=== PATIENT | male | born 1990 | race American Indian/Alaskan Native ===

== ENCOUNTER 2017-12-24 23:47 | Emergency (ER) | payer OTHER ==
[2017-12-25 00:03] VITALS: BP 148/73
[2017-12-25 00:40] LABS: CHLORIDE,CL 102 mmol/L (101-111); SODIUM,NA 137 mmol/L (135-145)
[2017-12-25] MEDS ORDERED: Ketorolac 30 MG/ML SDV IM ONE (00:57)
[2017-12-25] MEDS ORDERED: Acetaminophen/Codeine 300-30 MG Tab PO ONE (01:05)
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
== END 2017-12-25 01:15 | disposition home or self-care (01) ==
LOC: DL.ED 23:47
DX: S82.62XA Displaced fracture of lateral malleolus of left fibula, initial encounter for closed fracture (principal); F17.210 Nicotine dependence, cigarettes, uncomplicated; Y08.89XA Assault by other specified means, initial encounter
CPT/HCPCS: 36415; 73502; 73552; 73560; 73600; 80053; 85025; 96372; 99283; A9270; G0480; J1885

== ENCOUNTER 2020-03-28 09:48 | Emergency (ER) | payer OTHER ==
[2020-03-28] MEDS ORDERED: LORazepam 1 MG Tab PO ONE (10:04)
--- NOTE | 2020-03-28 10:13 | EDM.PDOCBH ---
ED HPI GENERAL MEDICAL PROBLEM - General Chief Complaint: Behavioral/Psych Stated Complaint: CHEST PAINS/SOB Time Seen by Provider: 03/28/20 10:00 Source of Information: Reports: Patient, Old Records, RN, RN Notes Reviewed History Limitations: Reports: No Limitations - History of Present Illness INITIAL COMMENTS - FREE TEXT/NARRATIVE: Pt presents to ER from home by POV with c/o anxiety, tremor/shaking, with panic attacks causing chest pain and numbness to the hands and around his mouth. Pt states he got out of penitentiary last week and was released with none of his chronic medications. The 2.5yrs that he was in penitentiary he states he took BuSpar 15mg twice a day, and Zoloft 100mg daily for anxiety and panic attack control. He states he was well controlled on the medication. He did not think to go to clinic to re-establish care and get his medications filled. Duration: Week(s): (1), Constant Location: Reports: Chest, Generalized Severity: Severe Improves with: Reports: None Worsens with: Reports: None Associated Symptoms: Reports: No Other Symptoms - Related Data Allergies Allergy/AdvReac Type Severity Reaction Status Date / Time No Known Allergies Allergy Verified 03/28/20 09:55 Home Meds: Home Meds . [No Known Home Meds] 01/13/14 [History] Past Medical History - Past Health History Medical/Surgical History: Denies Medical/Surgical History Musculoskeletal History: Reports: Fracture Psychiatric History: Reports: Anxiety, Panic Attack - Infectious Disease History Infectious Disease History: Reports: Chicken Pox Social & Family History - Family History Family Medical History: Noncontributory - Caffeine Use Caffeine Use: Reports: Soda - Living Situation & Occupation Living situation: Reports: Single, with Family Occupation: Employed ED ROS GENERAL - Review of Systems Review Of Systems: Comprehensive ROS is negative, except as noted in HPI. ED EXAM, BEHAVIORAL HEALTH - Physical Exam Exam: See Below Exam Limited By: No Limitations General Appearance: Alert, WD/WN, No Apparent Distress, Anxious Eye Exam: Bilateral Eye: Normal Inspection Nose: Normal Inspection Throat/Mouth: Normal Inspection, Normal Lips, Normal Teeth, Normal Gums, Normal Oropharynx, Normal Voice, No Airway Compromise Head: Atraumatic, Normocephalic Neck: Normal Inspection, Supple, Non-Tender, Full Range of Motion Respiratory/Chest: No Respiratory Distress, Lungs Clear, Normal Breath Sounds, No Accessory Muscle Use, Chest Non-Tender Cardiovascular: Regular Rate, Rhythm, No Edema, No JVD, No Murmur GI/Abdominal: Normal Bowel Sounds, Soft, Non-Tender, No Organomegaly, No Distention, No Abnormal Bruit, No Mass Back Exam: Normal Inspection Extremities: Normal Inspection Neurological: Alert, Normal Mood/Affect, CN II-XII Intact, Normal Cognition, No Motor/Sensory Deficits, Oriented x 3, Tremor Psychiatric: Restless, Other (Anxious). No: Homicidal Thoughts, Suicidal Plan, Suicidal Thoughts, Auditory Hallucinations, Visual Hallucinations Skin Exam: Warm, Dry, Intact, Normal color, No rash EKG INTERPRETATION EKG Date: 03/28/20 Time: 10:07 Rhythm: Other (Sinus tach) Rate (Beats/Min): 101 [place]: Normal P-Wave: Present QRS: Other (LPFB) ST-T: Normal QT: Prolonged (borderline) COURSE, BEHAVIORAL HEALTH COMP - Course Orders, Labs, Meds: Active Orders 24 hr Category Date Time Status EKG 12 Lead [EKG Documentation Completion] [RC] STAT Care 03/28/20 10:04 Active Medications Discontinued Medications Generic Name Dose Route Start Last Admin Trade Name Freq PRN Reason Stop Dose Admin Lorazepam 1 mg 03/28/20 10:04 03/28/20 10:11 Ativan PO 03/28/20 10:05 1 mg ONETIME ONE Administration Departure - Departure Time of Disposition: 10:16 Disposition: Home, Self-Care 01 Condition: Good Clinical Impression: Generalized anxiety disorder with panic attacks - Discharge Information *PRESCRIPTION DRUG MONITORING PROGRAM REVIEWED*: Not Applicable *COPY OF PRESCRIPTION DRUG MONITORING REPORT IN PATIENT DARION: Not Applicable Instructions: Living With Anxiety, Panic Attack, [id number] Forms: ED Department Discharge Additional Instructions: Rx: BuSpar 7.5mg Rx: Zoloft 50mg Follow up with [facility] within the next 7 days for medication management. - My Orders Last 24 Hours: My Active Orders 03/28/20 10:04 EKG 12 Lead [EKG Documentation Completion] [RC] STAT - Assessment/Plan Last 24 Hours: My Active Orders 03/28/20 10:04 EKG 12 Lead [EKG Documentation Completion] [RC] STAT
[2020-03-28 10:22] VITALS: BP 144/92; PULSE 105
== END 2020-03-28 10:30 | disposition home or self-care (01) ==
LOC: DL.ED 09:48
DX: F41.1 Generalized anxiety disorder (principal); F41.0 Panic disorder [episodic paroxysmal anxiety]
CPT/HCPCS: 93005; 93010; 99283; A9270

== ENCOUNTER 2020-03-29 15:54 | Emergency (ER) | payer OTHER | END 2020-03-29 16:26 | disposition left against medical advice (07) | LOC: DL.ED 15:54 | DX: Z53.21 Procedure and treatment not carried out due to patient leaving prior to being seen by health care provider (principal) ==

== ENCOUNTER 2020-03-29 17:47 | Emergency (ER) | payer OTHER | END 2020-03-29 18:42 | LOC: DL.ED 17:47 | DX: Z53.21 Procedure and treatment not carried out due to patient leaving prior to being seen by health care provider (principal) ==

== ENCOUNTER 2020-07-11 14:39 | Emergency (ER) | payer OTHER ==
[2020-07-11 15:06] VITALS: BP 121/76; PULSE 72
[2020-07-11] MEDS ORDERED: Lidocaine 1% 30 ML SDV INJECT ONE (16:15)
[2020-07-11] MEDS ORDERED: Bacitracin Oint 1 GM U/D Packet TOP ONE (16:15)
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
--- NOTE | 2020-07-11 16:30 | CT ---
EXAMINATION: Head wo Cont SEX: Male AGE: 29 years CLINICAL HISTORY: 29-year-old 182 pound male smoker injured when bucked off horse (hit forehead on fence post last night). Scan technique: Volume acquisition of data emergency unenhanced CT scan of the head and brain obtained with the patient lying supine on the Siemens multi slice scanner [place], [place]. All data archived in the PACS system for storage, reformatting axial/sagittal/coronal planes and study. Interpretation: Abnormal. 1. *Midline soft tissue swelling with central laceration located over the frontal sinus. No underlying fracture. 2. Uniformly thick bony calvarium without sign of skull fracture, underlying brain or contrecoup brain contusion, and no abnormal extracerebral/intracranial subdural or epidural hematoma. 3. Symmetric normal bocanegra-white matter pattern with underlying mirror-image normal ventricular system. 4. No sign of ischemic infarct, encephalomalacia. 5. No acute intracerebral, intraventricular or subarachnoid bleed. 6. Cerebellum and brainstem unremarkable. No basal skull fracture. 7. Symmetric clear pneumatization of the paranasal and mastoid sinuses. CONCLUSION: Frontal hematoma and skin laceration. No skull fracture or evidence of closed head injury.
[2020-07-11 16:35] LABS: ANION GAP 12.1 mEq/L (7-13); CHLORIDE,CL 104 mmol/L (98-107); SODIUM,NA 139 mmol/L (136-145)
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
[2020-07-11] MEDS ORDERED: Cephalexin 500 MG Cap PO ONE (16:58)
[2020-07-11] MEDS ORDERED: Diphtheria,Pertussis(Acell),Tetanus Vaccine 0.5 ML SDV IM ONE (16:58)
== END 2020-07-11 17:11 | disposition home or self-care (01) ==
LOC: DL.ED 14:39
DX: S06.0X0A Concussion without loss of consciousness, initial encounter (principal); S01.81XA Laceration without foreign body of other part of head, initial encounter; F17.210 Nicotine dependence, cigarettes, uncomplicated; Z23 Encounter for immunization; W55.12XA Struck by horse, initial encounter
CPT/HCPCS: 12013; 36415; 70450; 70486; 72125; 80053; 80307; 85025; 90471; 90715; 99283; A9270; J2001

== ENCOUNTER 2021-06-08 21:27 | Emergency (ER) | payer MEDICAID ==
[2021-06-08] MEDS ORDERED: Sodium Chloride 0.9% 10 ML Syringe FLUSH PRN (21:57)
[2021-06-08] MEDS ORDERED: methylPREDNISolone Sodium Succinate 125 MG/2 ML SDV IVPUSH ONE (21:57)
[2021-06-08] MEDS ORDERED: diphenhydrAMINE 50 MG/ML SDV IVPUSH ONE (21:57)
[2021-06-08] MEDS ORDERED: Famotidine 20 MG/2 ML SDV IVPUSH ONE (21:57)
[2021-06-08] MEDS ORDERED: EPINEPHrine 1 MG/ML SDV SUBCUT ONE (21:57)
[2021-06-08] MEDS ORDERED: Sodium Chloride 0.9% 1,000 ML IV ONE (21:58)
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
[2021-06-08 22:52] VITALS: BP 124/73; PULSE 84
== END 2021-06-08 23:11 | disposition home or self-care (01) ==
LOC: DL.ED 21:27
DX: T78.3XXA Angioneurotic edema, initial encounter (principal); Z79.899 Other long term (current) drug therapy
CPT/HCPCS: 96372; 96374; 96375; 99282-25; J0171; J1200; J2930; J3490; J7030

== ENCOUNTER 2021-09-12 22:15 | Emergency (ER) | payer MEDICAID ==
[~2021-09-12 22:15] MED LIST: Bacitracin Oint 1 GM U/D Packet TOP ONE; Lidocaine 1% 30 ML SDV INJECT ONE; Morphine 4 MG/ML Syringe IVPUSH ONE; Ondansetron 4 MG/2 ML SDV IVPUSH ONE; cefTRIAXone 1 GM in Sodium Chloride 0.9% 50 ML IV ONE
[2021-09-12 22:19] LABS: ANION GAP 13.7 mEq/L (7-13); CHLORIDE,CL 108 mmol/L (98-107); SODIUM,NA 141 mmol/L (136-145)
[2021-09-12 22:41] VITALS: BP 121/86; PULSE 84
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
== END 2021-09-13 01:04 | disposition home or self-care (01) ==
LOC: DL.ED 22:15
DX: S51.812A Laceration without foreign body of left forearm, initial encounter (principal); S61.411A Laceration without foreign body of right hand, initial encounter; S61.412A Laceration without foreign body of left hand, initial encounter; F10.10 Alcohol abuse, uncomplicated; Y90.7 Blood alcohol level of 200-239 mg/100 ml; Z72.0 Tobacco use; Y04.0XXA Assault by unarmed brawl or fight, initial encounter
CPT/HCPCS: 12005; 12045; 36415; 73120; 80053; 80307; 85025; 96365; 96375; 99284; J0696; J2270; J2405

== ENCOUNTER 2023-11-17 06:31 | Emergency (ER) | payer SELFPAY ==
[2023-11-17 07:18] VITALS: BP 135/82; PULSE 92
[2023-11-17 08:05] LABS: CORONAVIRUS COVID-19 NAA NEGATIVE (NEGATIVE); INFLUENZA A NAA NEGATIVE (NEGATIVE); INFLUENZA B NAA NEGATIVE (NEGATIVE); RESPIRATORY SYNCYTIAL VIR NAA NEGATIVE (NEGATIVE)
== END 2023-11-17 07:30 | disposition left against medical advice (07) ==
LOC: DL.ED 06:31
DX: F41.9 Anxiety disorder, unspecified (principal); F17.210 Nicotine dependence, cigarettes, uncomplicated
CPT/HCPCS: 0241U; 87081; 87430; 99283

== ENCOUNTER 2024-03-08 23:11 | Emergency (ER) | payer SELFPAY ==
[2024-03-09 01:35] VITALS: BP 160/87; PULSE 98
== END 2024-03-08 23:45 | disposition home or self-care (01) ==
LOC: DL.ED 23:11
DX: S06.0XAA Concussion with loss of consciousness status unknown, initial encounter (principal); S01.01XA Laceration without foreign body of scalp, initial encounter; W22.8XXA Striking against or struck by other objects, initial encounter; Y93.89 Activity, other specified; Y99.0 Civilian activity done for income or pay
CPT/HCPCS: 12001; 12011; 99282; 99283

== ENCOUNTER 2025-03-26 11:01 | Emergency (ER) | payer MEDICAID ==
[2025-03-26] MEDS: Take Home: Doxycycline 100 MG Cap, 4 Cap Pack PO ONE (11:29)
[2025-03-26] MEDS: Ketorolac 30 MG/ML SDV IM ONE (11:51)
[2025-03-26 11:53] VITALS: BP 116/77; PULSE 104
== END 2025-03-26 11:52 | disposition home or self-care (01) ==
LOC: DL.ED 11:01
DX: J18.9 Pneumonia, unspecified organism (principal)
CPT/HCPCS: 96372; 99283; 99284; A9270; J1885

== ENCOUNTER 2025-05-09 23:08 | Emergency (ER) | payer MEDICAID ==
[2025-05-09 23:11] LABS: BASOPHILS PERCENT AUTO 0.4 % (0.0-1.0); EOSINOPHILS PERCENT AUTO 4.2 % (1.0-3.0); LYMPHOCYTES PERCENT AUTO 40.5 % (20.5-50.1); MONOCYTES PERCENT AUTO 9.1 % (2-8); NEUTROPHILS PERCENT AUTO 45.8 % (42.2-75.2); PLATELET COUNT,PLT 285 10^3/uL (150-450); RED BLOOD CELL COUNT 4.96 10^6/uL (4.6-6.2); WHITE BLOOD CELL COUNT,WBC 5.7 10^3/uL (5.0-10.0)
[2025-05-09] MEDS: Ondansetron 4 MG/2 ML SDV IVPUSH ONE (23:11)
[2025-05-09 23:32] LABS: LACTIC ACID 1.6 mmol/L (0.4-2.0)
[2025-05-09 23:39] LABS: A/G RATIO 1.0; ALANINE AMINOTRANSFERASE,ALT 58 U/L (16-63); ASPARTATE AMNIOTRANSFERASE,AST 37 U/L (15-37); BILIRUBIN TOTAL 0.3 mg/dL (0.2-1.0); BLOOD UREA NITROGEN,BUN 8 mg/dL (7-18); CARBON DIOXIDE,CO2 30 mmol/L (21-32); CHLORIDE,CL 106 mmol/L (98-107); CREATINE KINASE,CK 534 U/L (39-308); CREATININE 0.74 mg/dL (0.70-1.30); GLUCOSE RANDOM 103 mg/dL (70-99); POTASSIUM,K 3.7 mmol/L (3.5-5.1); PROTEIN TOTAL,TP 7.7 g/dL (6.4-8.2); SODIUM,NA 145 mmol/L (136-145)
[2025-05-09 23:40] LABS: ESTIMATED GFR 123 mL/min (>=60)
[2025-05-10] MEDS: Take Home: Acetaminophen/oxyCODONE 325-5 MG, 5 Tab Pack PO ONE (02:05)
[2025-05-10 02:44] VITALS: BP 135/90; PULSE 80
[2025-05-10] MEDS: Iopamidol 612 MG/ML 100 ML Bottle IVPUSH ONE (03:06)
== END 2025-05-10 02:10 | disposition home or self-care (01) ==
LOC: DL.ED 23:08
DX: S22.019A Unspecified fracture of first thoracic vertebra, initial encounter for closed fracture (principal); S22.039A Unspecified fracture of third thoracic vertebra, initial encounter for closed fracture; S22.049A Unspecified fracture of fourth thoracic vertebra, initial encounter for closed fracture; S22.069A Unspecified fracture of T7-T8 vertebra, initial encounter for closed fracture; V80.010A Animal-rider injured by fall from or being thrown from horse in noncollision accident, initial encounter; Y93.52 Activity, horseback riding
CPT/HCPCS: 36415; 70450; 71045; 71260; 72125; 72128; 72170; 80053; 80307; 82550; 83605; 83690; 83735; 84484; 85025; 93005; 93010; 96361; 96374; 96375; 99284; 99285; A9270; J2270; J2405; J7030; Q9967